=== PATIENT | female | born 1950 | race African-American/Black ===

== ENCOUNTER 2016-10-12 17:40 | Emergency (ER) | payer OTHER ==
[~2016-10-12] VITALS: Ht 152.4 cm; Wt 90.7 kg
[2016-10-12 18:00] VITALS: BP 175/88
--- NOTE | 2016-10-12 18:41 | PHYS DOC ---
Past Medical History Past Surgical History: Knee Replacement Alcohol Use: Occasionally Adult General Chief Complaint Chief Complaint: INSECT BITE HPI HPI Patient is a 66 year old pleasant -[place] Citizen female who sustained an insect bite to her right bicep pain half ago. She noticed small growing lesion that described as a vesicle over the middle portion of the bicep was itchy in nature it grew in size and actually ruptured this morning she is also noted some crusting yellowness and lesions around the actual wound. It is draining clear single serositis discharge with mild soft tissue swelling around in a ringlike structure measuring about 2 cm in diameter. She denies any chest pain, shortness breath, oral lesions, abdominal pain, fevers, chills, joint pain, rash satellite lesions on the wound itself or a headache. She normally taking prophylactic clindamycin for her knee replacement therapy but is out of medication. She also has eczema that she uses topical steroid cream which did not help this particular lesion. He denies any recent travel outside the country , recent antibiotics or other complaints. Review of Systems Review of Systems Constitutional: Denies fever or chills [] Eyes: Denies change in visual acuity, redness, or eye pain [] HENT: Denies nasal congestion or sore throat [] Respiratory: Denies cough or shortness of breath [] Cardiovascular: No additional information not addressed in HPI [] GI: Denies abdominal pain, nausea, vomiting, bloody stools or diarrhea [] : Denies dysuria or hematuria [] Musculoskeletal: Denies back pain or joint pain [] Integument: Local skin lesion measuring 2 cm abrasion length and width with a small central area of vesicle that has ruptured grading a serosanguineous discharge Neurologic: Denies headache, focal weakness or sensory changes [] Endocrine: Denies polyuria or polydipsia [] Current Medications Current Medications Current Medications Medications (Trade) Dose Ordered Sig/[place] Start Time Stop Time Status Last Admin Dose Admin Mupirocin (Bactroban) 1 jeancarlos TID 10/12/16 21:00 UNV Physical Exam Physical Exam Auto signs reviewed at bedside within normal limits Constitutional: Well developed, well nourished, no acute distress, non-toxic appearance. [] Cardiovascular:Heart rate regular rhythm, no murmur [] Lungs & Thorax: Bilateral breath sounds clear to auscultation [] Skin: Warm, dry, small circular area of soft tissue swelling with no induration or fluctuance there is a small vesicle has ruptured draining a clear serous fingers fluid in the center with mild yellow crusted lesions surrounded very reminiscent of impetigo minimal tenderness to palpation there is no lymphadenitis noted. Extremities: No tenderness, no cyanosis, no clubbing, ROM intact, no edema. [] Neurologic: Alert and oriented X 3, normal motor function, normal sensory function, no focal deficits noted. [] EKG EKG [] Radiology/Procedures Radiology/Procedures [] Course & Med Decision Making Course & Med Decision Making Pertinent Labs and Imaging studies reviewed. (See chart for details) Nursing notes and vital signs reviewed on arrival. Patient has a local early cellulitis with impetigo likely secondary to a local insect envenomation. Patient has no other systemic complaints no evidence of Lyme disease. This is not a target lesion in the typical sense. Patient would provided topical Bactroban ointment and oral clindamycin for cellulitis treatment wound care follow-up in 24-48 hours with her primary care doctor asked to return for any new symptoms lymphadenitis joint pain fevers greater 102.2 or if she has questions or concerns. Impression: Impetigo, early cellulitis Disposition PCP follow-up with wound care valuation 24-48 hours and by ointment and treatment orally. [] Dragon Disclaimer Dragon Disclaimer This electronic medical record was generated, in whole or in part, using a voice recognition dictation system. Departure Departure Impression: Primary Impression: Impetigo Additional Impression: Cellulitis Disposition: 01 HOME, SELF-CARE Condition: IMPROVED Referrals: NO PCP (PCP) Patient Instructions: Cellulitis, Impetigo, Insect Bite Additional Instructions: Patient would provided topical Bactroban ointment and oral clindamycin for cellulitis treatment wound care follow-up in 24-48 hours with her primary care doctor asked to return for any new symptoms lymphadenitis joint pain fevers greater 102.2 or if she has questions or concerns. [] Problem Qualifiers ARACELI GARCIA MD Oct 12, 2016 18:41
[2016-10-12] MEDS ORDERED: MUPIROCIN 2 % TOPICAL CREAM 15GM TUBE. TP SCH (21:00)
== END 2016-10-12 18:47 | disposition home or self-care (01) ==
LOC: ER 17:40
DX: L01.00 Impetigo, unspecified (principal); L03.114 Cellulitis of left upper limb
CPT/HCPCS: 99283